=== PATIENT | female | born 1955 | race Caucasian/White ===

== ENCOUNTER 2016-08-09 07:32 | Outpatient (CLI) | payer OTHER ==
[2016-08-09 07:54] LABS: BASOPHILS # (AUTO) 0.1 K/uL (0-0.2); BASOPHILS % (AUTO) 1.7 % (0.0-3.0); EOSINOPHILS # (AUTO) 0.4 K/ul (0.0-0.7); EOSINOPHILS % (AUTO) 8.9 % (0.0-7.0); HEMATOCRIT 37.4 % (37.0-47.0); HEMOGLOBIN 12.2 g/dl (12.0-16.0); IMMATURE GRANULOCYTE % (AUTO) 0.2 % (0.0-5.0); LYMPHOCYTES # (AUTO) 1.5 K/uL (0.60-3.4); LYMPHOCYTES % (AUTO) 31.1 (10.0-50.0); MEAN CORPUSCULAR HEMOGLOBIN 29.4 pg (27.0-31.0); MEAN CORPUSCULAR HGB CONC 32.6 (31.8-35.4); MEAN CORPUSCULAR VOLUME 90.1 fl (81.0-99.0); MONOCYTES # (AUTO) 0.5 K/uL (0.4-2.0); MONOCYTES % (AUTO) 11.2 (0-10); NEUTROPHILS # (AUTO) 2.2 K/ul (2.0-6.9); NEUTROPHILS % (AUTO) 46.9; PLATELET COUNT 267 10^3/uL (140-440); RED BLOOD COUNT 4.15 10^6/ul (4.20-5.40); WHITE BLOOD COUNT 4.73 K/ul (4.6-10.2)
[2016-08-09 07:59] LABS: BILIRUBIN,URINE Negative (NEGATIVE); KETONES,URINE Negative (NEGATIVE); LEUKOCYTE ESTERASE ,URINE Negative (NEGATIVE); NITRITE,URINE Negative (NEGATIVE); PH,URINE 5.5 (5-9); PROTEIN,URINE Negative (NEGATIVE); URINE, BLOOD Negative (NEGATIVE)
[2016-08-09 08:00] LABS: ADD URINE MICROSCOPIC NO
[2016-08-09 08:14] LABS: ALBUMIN 3.5 g/dL (3.4-5.0); ALBUMIN/GLOBULIN RATIO 1.06; ANION GAP 12.4; BILIRUBIN,TOTAL 0.35 mg/dL (0.00-1.20); BUN/CREATININE RATIO 18.18; CALCIUM 9.3 mg/dL (8.2-10.2); CREATININE 0.77 mg/dL (0.60-1.30); POTASSIUM 4.4 mmol/L (3.5-5.10); TOTAL PROTEIN 6.8 g/dL (6.4-8.2)
--- NOTE | 2016-08-09 09:33 | CT ---
EXAM: CT of the abdomen pelvis with and without contrast History: Right lower quadrant abdominal pain. Technique: Multiplanar CT images through the abdomen pelvis were obtained with and without the admi nistration of IV contrast Findings: Lung bases are free of consolidation. No acute osseous abnormalities. Postsurgical change s of the lumbosacral spine. Spinal stimulator device is seen. No renal stones and no hydronephrosis. The appendix is not dilated or inflamed. No ureteral calculi . No discrete gallstones identified by CT. No focal liver or splenic lesions. No renal masses. N o bowel obstruction. No free air. Pancreas is within normal limits. Adrenal glands are unremarkab le. Tiny fat containing umbilical hernia. No bladder wall thickening. The sigmoid colonic divertic ulosis. There is minimal stranding seen within the right pelvis adjacent to the sigmoid colon. Impression: 1. Question of early sigmoid diverticulitis. 2. Normal appendix.
== END 2016-08-09 07:33 | disposition home or self-care (01) ==
LOC: RAD 07:32
PROVIDERS: ATTEND Family Medicine
DX: R10.31 Right lower quadrant pain (principal)
CPT/HCPCS: 36415; 80053; 81001; 85025; 87086

== ENCOUNTER 2016-09-06 13:59 | Outpatient (CLI) | payer OTHER | END 2016-09-06 14:00 | disposition home or self-care (01) | LOC: LAB 13:59 | PROVIDERS: ATTEND Family Medicine | DX: K57.32 Diverticulitis of large intestine without perforation or abscess without bleeding (principal) | CPT/HCPCS: 87493 ==

== ENCOUNTER 2018-08-19 21:05 | Emergency (ER) ==
[2018-08-19 21:18] VITALS: BP 169/97; TEMP 98.4; BMI 41.8
[2018-08-19] MEDS ORDERED: SOLU-MEDROL 125 MG IVP STA (21:49)
[2018-08-19] MEDS ORDERED: TORADOL IVP STA (21:49)
--- NOTE | 2018-08-19 21:50 | ED.PDOC ---
General ED Provider: Dr. CHIDI MOELLER MD Chief Complaint: Headache Stated Complaint: headache Time Seen by Physician: 21:16 Mode of Arrival: Walk-In Information Source: Patient Exam Limitations: No limitations Primary Care Provider: CHIDI OLVERA Nursing and Triage Documentation Reviewed and Agree: Yes Does patient meet sepsis criteria?: No If yes, has appropriate treatment been initiated?: Yes System Inflammatory Response Syndrome: Not Applicable Sepsis Protocol: For patient's 13 years and over: Temp is 96.8 and below OR 101 and greater Pulse >90 BPM Resp >20/minute Acutely Altered Mental Status Are patient's symptoms suggestive of a new infection, such as: -Pneumonia -Skin, Soft Tissue -Endocarditis -UTI -Bone, Joint Infection -Implantable Device -Acute Abdominal Infection -Wound Infection -Meningitis -Blood Stream Catheter Infection -Unknown Review of Systems - Review Of Systems Constitutional: Reports: Other (photophobia) Eyes: Reports: No symptoms Ears, Nose, Mouth, Throat: Reports: No symptoms Respiratory: Reports: No symptoms Cardiac: Reports: No symptoms GI: Reports: No symptoms : Reports: No symptoms Musculoskeletal: Reports: No symptoms Skin: Reports: No symptoms Neurological: Reports: No symptoms Endocrine: Reports: No symptoms Hematologic/Lymphatic: Reports: No symptoms All Other Systems: Reviewed and Negative Past Medical History - Past Medical History Previously Healthy: Yes Endocrine: Reports: None Cardiovascular: Reports: None Respiratory: Reports: None Hematological: Reports: None Gastrointestinal: Reports: None Genitourinary: Reports: None Neuro/Psych: Reports: None Musculoskeletal: Reports: Arthritis, Back Pain Cancer: Reports: None Last Menstrual Period: 1987 - Surgical History General Surgical History: Reports: None - Family History Family History: Reports: None - Social History Smoking Status: Never smoker Hx Substance Use: No Alcohol Screening: None - Immunizations Tetanus Shot up to Date: Yes Physical Exam - Physical Exam Appearance: Obese Pain Distress: Moderate Eyes: NOE, EOMI, Conjunctiva clear ENT: Ears normal, Nose normal, Oropharynx normal Respiratory: Airway patent, Breath sounds clear, Breath sounds equal, Respirations nonlabored Cardiovascular: RRR, Pulses normal, No rub, No murmur GI/: Soft, Nontender, No masses, Bowel sounds normal, No Organomegaly Musculoskeletal: Normal strength, ROM intact, No edema, No calf tenderness Skin: Warm, Dry, Normal color Neurological: Sensation intact, Motor intact, Reflexes intact, Cranial nerves intact, Alert, Oriented Psychiatric: Affect appropriate, Mood appropriate Critical Care Note - Critical Care Note Total Time (mins): 0 Course - Course Orders, Labs, Meds: Orders Category Date Time Status IV [ED IV/MEDIPORT/POWERPORT] .ONCE EMERGENCY 08/19/18 21:48 Active 0.9 % Sodium Chloride [Saline Flush] MEDS 08/19/18 21:48 Ordered 1 syr IVF PRN PRN Diphenhydramine Inj [Benadryl] 50 mg MEDS 08/19/18 23:04 Active 0.9 % Sodium Chloride [Sodium Chloride] 100 ml IV ONCE Methylprednisolone Sod Succ/Pf [Solu-Medrol 125 mg] MEDS 08/19/18 21:49 Discontinued 125 mg IVP ONCE STA Medications Generic Name Dose Route Start Last Admin Trade Name Freq PRN Reason Stop Dose Admin Diphenhydramine HCl 50 mg/ 101 mls @ 100 mls/hr 08/19/18 23:04 Sodium Chloride IV 08/20/18 00:04 ONCE STA Sodium Chloride 1 syr 08/19/18 21:48 Saline Flush IVF PRN PRN To flush IV Discontinued Medications Generic Name Dose Route Start Last Admin Trade Name Freq PRN Reason Stop Dose Admin Methylprednisolone Sodium Succinate 125 mg 08/19/18 21:49 08/19/18 22:26 Solu-Medrol 125 Mg IVP 08/19/18 21:50 125 mg ONCE STA Administration Vital Signs: Temp Pulse Resp BP Pulse Ox 08/19/18 21:08 98.4 F 75 20 169/97 H 98 Departure - Departure Time of Disposition: 23:15 Disposition: AMA Discharge Problem: Headache Qualifiers: Headache type: unspecified Headache chronicity pattern: acute headache Intractability: intractable Qualified Code(s): R51 - Headache Instructions: Migraine Headache (ED) Condition: Good Pt referred to PMD for follow-up: Yes IPMP verified?: No Allergies/Adverse Reactions: Allergies hydromorphone HCl [From Dilaudid] Allergy (Verified 08/19/18 21:18) latex tape Adverse Reaction (Uncoded 08/19/18 21:18) Home Medications: Ambulatory Orders Baclofen 20 mg PO BID 07/20/16 Folic Acid 1 mg PO DAILY 07/20/16 Leflunomide 20 mg PO DAILY 07/20/16 Metoprolol Tartrate 25 mg PO BID 07/20/16 Oxycodone-Acetaminophen 5-325 [Percocet 5-325] 1 each PO TID PRN 07/20/16 Simvastatin [Zocor] 40 mg PO BEDTIME 07/20/16 Transfer Form Completed: No Disposition Discussed With: Patient, Family (pt denied 2nd medicine decided AMA , stating she wants to go home)
[2018-08-19] MEDS ORDERED: BENADRYL 50 MG in SODIUM CHLORIDE 100 ML IV STA (23:04)
[2018-08-19] MEDS ORDERED: BENADRYL ONE (23:11)
== END 2018-08-19 23:15 | disposition left against medical advice (07) ==
LOC: ED 21:05
DX: R51 Headache (principal)
CPT/HCPCS: 96372; 96374; 99282